=== PATIENT | female | born 1955 | race Caucasian/White ===

== ENCOUNTER → 2017-10-31 | Outpatient (CLI) | payer OTHER ==
[~2017-10-31] MED LIST: FISH OIL 1,001000 M1 PO; GLUCOSAMINE HC500 MG PO; LISINOPRIL20 MG PO; PREMARIN0.3 MG PO
== END ==
LOC: M.RAD 16:20
DX: Z12.31 Encounter for screening mammogram for malignant neoplasm of breast (principal)

== ENCOUNTER → 2017-12-30 | Outpatient (CLI) | payer OTHER ==
--- NOTE | 2017-12-30 13:45 | EXE ---
[place] [address] STRESS ECHOCARDIOGRAM Name: NORMA FORD Room: [facility]#: [id number] Admission: 12/30/17 Attend Phys: Deangelo Smith, Discharge: Date of : 59 Date of Service: 12/30/17 1345 Report #: [id number] THIS REPORT FOR: //name// APPROVED REPORT Exam: Stress Echocardiogram Indication: CAD , Calcium Score Patient Location: Out-Patient Stress Nurse: Rita Dixon RN Supervising Physician: Fidencio Gillette MD Status: routine Ht: 5 ft 6 in HR: 58 bpm BP: 123/74 mmHg Medical History Medical History: CAD Cardiac Risk Factors: FHX of CAD, Tobacco History (Former) Procedure The patient underwent an Exercise Stress Test using the Tigre Protocol. Blood pressure, heart rate, and EKG were monitored. An Echocardiogram was performed by solar technician in four stages in quad fashion. At peak stress, four selected images were obtained and placed side by side with resting images for comparison. Stress Test Details Stress Test: Exercise stress testing was performed using a Tigre protocol. HR Resting HR: 58 bpm Max Heart Rate (APMHR): 160 bpm Max HR Achieved: 162 bpm Target HR (85% APMHR): 136 bpm % of APMHR: 101 Recovery HR: 95 bpm HR response to stress: Normal HR response to stress BP Resting BP: 123/74 mmHg Max BP: 172/92 mmHg Recovery BP: 130/87 mmHg ECG Resting ECG: Sinus Rhythm Stress ECG: Sinus Rhythm, nonspecific [place] [address] STRESS ECHOCARDIOGRAM Name: NORMA FORD Room: [facility]#: [id number] Admission: 12/30/17 Attend Phys: Deangelo Smith, Discharge: Date of : 59 Date of Service: 12/30/17 1345 Report #: [id number] ST Change: Upsloping ST depression Maximum ST Deviation: 0.5 mm Recovery ECG: Sinus Rhythm, nonspecific ST-T abnormalities Recovery ST Change: Horizontal ST depression Recovery ST Deviation: 0.5 mm Clinical Reason for Termination: Completed protocol, Leg pain Exercise duration: 7 min 49 sec Highest Stage Achieved: Stage 2: 2.5 mph at 12% grade. Exercise capacity: 9.84 METs Pre-Stress Echo The resting Echocardiogram showed normal left ventricular contractility with an estimated Ejection Fraction of about 60-65%. Post-Stress Echo The stress Echocardiogram showed normal left ventricular contractility with an estimated Ejection Fraction of about 65-70%. Conclusion Clinical Response: Non-ischemic Exercise Capacity: Average Stress ECG Response: Equivocal Stress Echo Images: Non-ischemic low risk stress echo for future cardiac events Other Information Study Quality: Good <Conclusion> low risk stress echo for future cardiac events <ELECTRONICALLY SIGNED> By: Fidencio Gillette MD, FACC 12/30/17 1345 1345 1345 Fidencio Gillette MD, FACC /INF
== END ==
LOC: M.CRD 10:45
DX: Z13.6 Encounter for screening for cardiovascular disorders (principal); I25.10 Atherosclerotic heart disease of native coronary artery without angina pectoris